=== PATIENT | male | born 1950 | race Caucasian/White ===

== ENCOUNTER → 2018-01-23 | Outpatient (CLI) | payer MEDICARE, BC, OTHER ==
[~2018-01-23] MED LIST: ATOR10TA PO
== END | disposition home or self-care (01) ==
LOC: STAR 14:23
PROVIDERS: ATTEND Orthopaedic Surgery
DX: Z01.818 Encounter for other preprocedural examination (principal); I45.10 Unspecified right bundle-branch block; M20.21 Hallux rigidus, right foot
CPT/HCPCS: 93005

== ENCOUNTER 2018-01-27 09:25 | Day surgery (SDC) | payer BC, MEDICARE, OTHER ==
[~2018-01-27] VITALS: Ht 165.1 cm; Wt 71.1 kg
[2018-01-27] MEDS ORDERED: LACTATED RINGERS 1,000 ML IV SCH (09:42)
[2018-01-27] MEDS ORDERED: GABAPENTIN 300 MG CAPSULE PO ONE (10:00)
[2018-01-27] MEDS ORDERED: LIDOCAINE-MPF 1%, 2ML INFIL ONE (10:00)
[2018-01-27] MEDS ORDERED: ACETAMINOPHEN 500 MG TABLET PO ONE (10:00)
[2018-01-27] MEDS ORDERED: ONDANSETRON ODT 8 MG PO ONE (10:00)
[2018-01-27 10:06] VITALS: BP 135/85
[2018-01-27] MEDS ORDERED: MIDAZOLAM 1 MG/ML, 2ML ONE (10:26)
[2018-01-27] MEDS ORDERED: FENTANYL PF 100 MCG/2ML ONE (10:26)
[2018-01-27] MEDS ORDERED: MEPERIDINE/PF 25MG/0.5ML IVPush PRN (11:00)
[2018-01-27] MEDS ORDERED: MORPHINE SULFATE 4 MG/ML, 1ML IVPush PRN (11:00)
[2018-01-27] MEDS ORDERED: FENTANYL PF 100 MCG/2ML IV PRN (11:00)
[2018-01-27] MEDS ORDERED: LABETALOL 5MG/ML, 20ML IV PRN (11:00)
[2018-01-27] MEDS ORDERED: hydrALAzine 20 MG/ML, 1ML IV PRN (11:00)
[2018-01-27] MEDS ORDERED: DIAZEPAM 5 MG/ML, 2ML IVPush PRN (11:00)
[2018-01-27] MEDS ORDERED: PROMETHAZINE 25 MG/ML, 1ML IV PRN (11:00)
[2018-01-27] MEDS ORDERED: EPHEDRINE 50 MG/ML, 1ML IM PRN (11:00)
[2018-01-27] MEDS ORDERED: HYDROmorphone 1 MG/ML, 1ML IV PRN (11:00)
[2018-01-27] MEDS ORDERED: OXYcodone 5 MG/5 ML ORAL.SOL UDC PO PRN (11:00)
[2018-01-27] MEDS ORDERED: MIDAZOLAM 1 MG/ML, 2ML IV PRN (11:00)
[2018-01-27] MEDS ORDERED: ALBUTEROL/IPRATROPIUM 2.5MG/0.5MG, 3 ML NPPB PRN (11:00)
[2018-01-27] MEDS ORDERED: PROPOFOL 10 MG/ML, 20ML ONE (11:22)
[2018-01-27] MEDS ORDERED: DEXAMETHASONE 4 MG/ML, 1ML ONE (11:22)
[2018-01-27] MEDS ORDERED: BUPIVACAINE/PF 0.5% ONE (11:22)
[2018-01-27] MEDS ORDERED: CEFAZOLIN 1,000 MG ONE (11:22)
[2018-01-27] MEDS ORDERED: ONDANSETRON 2MG/ML, 2ML ONE (11:22)
== END 2018-01-27 13:45 ==
LOC: OUT 09:25
PROVIDERS: ATTEND Orthopaedic Surgery
DX: M20.21 Hallux rigidus, right foot (principal); E78.5 Hyperlipidemia, unspecified
CPT/HCPCS: 28289; J0690; J1100; J2250; J2405; J2704; J3010; J3490; J7120; Q0162